=== PATIENT | female | born 1975 | race Caucasian/White ===

== ENCOUNTER 2023-06-30 06:15 | Day surgery (SDC) | payer BC, SELFPAY ==
[2023-06-26 08:39] VITALS: BMI 22.2
[2023-06-26 10:25] LABS: % Basophils 0.6 % (0-2); % Eosinophils 1.9 % (0-6); % Immature Granulocytes 0.2 % (0-0.5); % Lymphocytes 26.2 % (20.5-51.1); % Monocytes 10.6 % (1.7-9.3); % Neutrophils 60.5 % (42.2-75.2); Absolute Eosinophils 0.1 10^3/uL (0-0.7); Absolute Lymphocytes 1.4 10^3/uL (1.2-3.4); Absolute Monocytes 0.6 10^3/uL (0.1-0.6); Absolute Neutrophils 3.3 10^3/uL (1.4-6.5); Hemoglobin 12.3 g/dL (12.0-16.0); Mean Corp Hgb Conc. 34.2 g/dL (33.0-37.0); Mean Corpuscular Hgb 31.1 pg (27.0-31.0); Mean Corpuscular Volume 91.1 fL (81.0-99.0); Mean Platelet Volume 11.2 fL (7.4-10.4); Nucleated Red Blood Cells % 0 %; Platelet Count 212 10^3/uL (130-400); Red Blood Cell Count 3.95 10^6/uL (4.20-5.40); Red Cell Dist. Width 11.8 % (11.5-14.5); Urine Albumin Trace (Neg - Trace); Urine Bilirubin Negative (Negative); Urine Character Very Cloudy (Clear); Urine Color Yellow; Urine Glucose Negative (Negative); Urine Ketone Trace (Negative); Urine Leukocyte 1+ (Negative); Urine Nitrite Negative (Negative); Urine Occult Blood Negative (Negative); Urine Urobilinogen Negative (Neg - 1+); White Blood Cell Count 5.4 10^3/uL (4.8-10.8)
[2023-06-26 10:53] LABS: INR 1.07; PT 13.9 Sec (11.4-14.6)
[2023-06-26 10:54] LABS: APTT 28.6 Sec (23.4-35.0)
[2023-06-26 11:20] LABS: Urine Squamous Cell >30 /LPF (Few)
[2023-06-26 11:21] LABS: Urine Bacteria Moderate (Negative); Urine Red Blood Cell 0-2 /HPF (0-2); Urine White Cell 16-20 /HPF (0-5)
[2023-06-26 11:26] LABS: Blood Urea Nitrogen 7 mg/dl (7-17); Calcium 9.8 mg/dl (8.4-10.2); Carbon Dioxide 22 mmol/L (22-30); Chloride 110 mmol/L (98-107); Estimated Creatinine Clearance 102 ml/min; Glucose 84 mg/dl (70-99); Potassium 4.8 mmol/L (3.5-5.1); Sodium 139 mmol/L (135-145); eGFR > 60.00
--- NOTE | 2023-06-26 16:38 | PTCARENOTE ---
Gwen Dee in office made aware.
[2023-06-30] VITALS (10 sets, daily range): BP systolic 92–112; BP diastolic 53–71; BMI 22.2
[2023-06-30] MEDS: NORMOSOL-R 1000 IV (07:40)
[2023-06-30] MEDS: Pyridium 200 MG PO (09:30)
== END 2023-06-30 10:12 | disposition home or self-care (01) ==
LOC: SDS 06:15
PROVIDERS: ATTENDING PHYSICIAN Urology; FAMILY PHYSICIAN Family Medicine
DX: N30.10 Interstitial cystitis (chronic) without hematuria (principal)
CPT/HCPCS: 52260; 36415; 80048; 81003; 81015; 85025; 85610; 85730; 87086; 93005

== ENCOUNTER 2025-01-17 06:20 | Day surgery (SDC) | payer BC, SELFPAY ==
[2025-01-17 10:27] VITALS: BMI 20.5
[2025-01-17 10:28] VITALS: BP 108/66; BMI 20.5
[2025-01-17] MEDS: NORMOSOL-R/PLASMALYTE-A 1000 IV (10:40)
[2025-01-17 12:42] VITALS: BP 108/66; BP 98/62
[2025-01-17 12:45] VITALS: BP 108/64
[2025-01-17 13:11] VITALS: BP 109/77
[2025-01-17 13:25] VITALS: BP 122/97
[2025-01-17 13:46] VITALS: BP 102/56
== END 2025-01-17 13:55 | disposition home or self-care (01) ==
LOC: SDS 06:20
PROVIDERS: ATTENDING PHYSICIAN Urology
DX: N30.10 Interstitial cystitis (chronic) without hematuria (principal); N32.89 Other specified disorders of bladder
CPT/HCPCS: 52260; 51700; 87077; 87086